=== PATIENT | female | born 1985 | race Caucasian/White ===

== ENCOUNTER 2023-04-13 12:45 | Outpatient (CLI) | payer OTHER, SELFPAY | END 2023-04-13 12:46 | disposition home or self-care (01) | LOC: ANHAUDIO 12:46 | PROVIDERS: Visit Provider Otolaryngology | DX: H91.91 Unspecified hearing loss, right ear (principal) | CPT/HCPCS: 92552; 92556; 92567 ==

== ENCOUNTER 2024-01-30 12:39 | Emergency (ER) | payer OTHER, SELFPAY ==
--- NOTE | ~2024-01-30 | CT_ITS ---
EXAMINATION: CT brain wo con DATE: 01/30/2024 15:05 INDICATION: numbness . TECHNIQUE: Computed tomography (CT) of the head was performed without intravenous contrast. The mA wa s adjusted according to patient size. Iterative reconstruction technique was employed. The dose-lengt h product was 529.67 mGy-cm. COMPARISON: None. FINDINGS: No acute intracranial hemorrhage or extra-axial fluid collection. No hydrocephalus, mass, or herniation. No acute ischemic infarct. Unremarkable dural venous sinus attenuation. No acute osseous abnormality. Ethmoid mucosal thickening, retention cyst/polyp in the left sphenoid sinus, the remaining aerated sp aces are clear. 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 Reviewed, dictated and finalized at location K.
[2024-01-30 13:03] VITALS: BP 128/80; PULSE 82; RESP 18; TEMP 36.5; O2SAT 100
--- NOTE | 2024-01-30 14:46 | ED.GENADULT ---
HPI - General Adult General Chief complaint: Neuro Symptoms/Deficit <Mervat Hook March, - Last Filed: 01/30/24 14:50> Stated complaint: nubness tingling on right side head <Mervat Hook March, - Last Filed: 01/30/24 14:50> Time Seen by Provider: 01/30/24 14:47 <Mervat Hook March, - Last Filed: 01/30/24 14:50> Focused HPI: Brittny Kaye is a 38 y/o female who presents with reports of having hx of migraines and they usually are behind her ears/eyes and she states that since she has had about 3 different severe migraines this week that felt different. She presents today because this one started at 0630 and nothing is making it better she states the pain is to the top of her right head/ she feels jittery and really tired. She also states that she has had intermittent face pain on the right side and intermittent numbness to her right hand GENERAL: Well-appearing, well-nourished, and in no acute distress. HEAD: Normocephalic, atraumatic. CHEST: Clear to auscultation. ?No respiratory distress. HEART: Regular rate and rhythm.? NEURO: ?Alert and oriented x3. Patient screened in triage and initial orders placed.? ?Additional care and disposition to be based upon?diagnostic testing and treatment. <Mervat Hook March, - Last Filed: 01/30/24 14:50> History of Present Illness HPI narrative: Patient is a 30-year-old female who presents emergency department with chief complaint of headache. Patient reports she has prior history of migraines and reports that she started having 3 different wounds over the last week patient states this morning about 630 the morning started having pain on the right side of her head felt jittery and tired the patient states she did feel a little tingly sensation on the right side of her face and reported that she had tingling in her 4th and 5th digit of her right hand. The patient states this is starting to feel better at this time and the onset was at 6:30 a.m.. The patient states she has no other focal weakness the patient states that because this felt different than her previous migraines she decided to come to the emergency department for evaluation. <Patrick Urrutia MD - Last Filed: 01/30/24 22:05> Related Data Home medications: Home Medications Medication Instructions Recorded Confirmed No Home Medications 08/05/20 03/14/23 <Mervat Petit APRN - Last Filed: 01/30/24 14:50> Allergies/adverse reactions: Allergies Allergy/AdvReac Type Severity Reaction Status Date / Time No Known Allergies Allergy Unverified 03/14/23 13:44 <Mervat Petit DAY CARE TEACHER - Last Filed: 01/30/24 14:50> Review of Systems Review of Systems: A 10 system review of systems was completed on the patient and is negative except for what is stated in the HPI. Nursing and ancillary documentation was reviewed. <Patrick Urrutia MD - Last Filed: 01/30/24 22:05> PMFSH Social History Social History: Social History Smoking status: Never smoker Smokeless tobacco user: other Second hand tobacco smoke exposure: No Alcohol intake: never Lack of Transportation: No Lack of Food: Never True Current Housing: I Have Housing Concerned About Future Housing: No Difficulty Paying Gas/Electric Bills: No Difficulty Paying for Meds: No Currently Unemployed: No Education: Decline to Answer Difficulty w/ Childcare or Family Care: No <Mervat Petit APRN - Last Filed: 01/30/24 14:50> Exam Narrative: GENERAL: Well-appearing, well-nourished, and in no acute distress. HEAD: Normocephalic, atraumatic. EYES: PERRLA and EOMI. ENT: Nares clear, no rhinorrhea or epistaxis. Mucous membranes moist. NECK: Supple. CHEST: Clear to auscultation. No respiratory distress. HEART: Regular rate and rhythm. No murmur heard. Normal peripheral pulses. ABDOMEN: Soft, nontender, nondistended, normal active dari
[2024-01-30 20:25] VITALS: BP 112/82; PULSE 82; RESP 15; O2SAT 100
[2024-01-30 21:05] LABS: Basophils Absolute Auto 0.1 K/mm3 (0.0-0.1); Basophils Percent Auto 0.8 % (0.2-1.2); Eosinophils Absolute Auto 0.2 K/mm3 (0-0.3); Eosinophils Percent Auto 1.6 % (0-4.4); Hematocrit 40.1 % (37.0-47.0); Hemoglobin 13.2 g/dL (12.0-15.0); Immature Granulocyte Absolute 0.03 K/mm3 (0.00-0.031); Immature Granulocyte Percent A 0.3 % (0-0.5); Lymphocytes Absolute Auto 2.82 K/mm3 (0.9-3.2); Lymphocytes Percent Auto 25.6 % (18.3-44.2); Mean Corpuscular HGB Conc 32.9 g/dl (32-36); Mean Corpuscular Hemoglobin 27.4 pg (26-34); Mean Corpuscular Volume 83.4 fl (80-100); Mean Platelet Volume 9.6 fl (7.4-10.4); Monocytes Absolute Auto 0.8 K/mm3 (0.1-0.6); Monocytes Percent Auto 7.4 % (2.6-8.5); Neutrophils Absolute Auto 7.1 K/mm3 (1.3-6.7); Neutrophils Percent Auto 64.3 % (45.5-73.1); Platelet Count Result 357 k/mm3 (150-375); Red Blood Count 4.81 M/mm3 (4.2-5.4); Red Cell Distribution Width 13.1 % (11.5-14.5)
[2024-01-30 21:19] LABS: Anion Gap 6 mmol/L (8-16); Blood Urea Nitrogen 17 mg/dL (7-17); Calcium 9.1 mg/dL (8.4-10.2); Carbon Dioxide 27 mmol/L (22-30); Chloride 103 mmol/L (98-107); Estimated Glomerular Filt Rate > 60; Glucose 97 mg/dL (65-110); Potassium 3.8 mmol/L (3.4-5.0); Sodium 136 mmol/L (137-145)
[2024-01-30] MEDS: KETOROLAC 30 MG/ML VIAL (*BKC) IV PUSH (21:23)
[2024-01-30] MEDS: diphenhydrAMINE HCl INJ 50 MG/ML VIAL 25 MG IV PUSH (21:25)
[2024-01-30] MEDS: PROCHLORPERAZINE EDISYLATE 10 MG/2 ML VIAL IV PUSH (21:25)
[2024-01-30] MEDS: SODIUM CHLORIDE 0.9% IV 1,000 ML 999 ML IV CONT (21:26)
[2024-01-30 21:40] LABS: Appearance Urine Cloudy (Clear); Bacteria Urine None Seen /hpf; Bilirubin Urine Negative (Negative); Blood Urine 1+ (Negative); Color Urine Yellow (Yellow); Glucose Urine UA Negative (Negative); Ketones Urine Trace mg/dL (Negative); Leukocyte Esterase Ur Trace LEU/UL (Negative); Nitrate Urine Negative (Negative); Non Pathogenic Casts 0-2; Protein Urine Negative (Negative); Specific Grav Ur 1.024 (1.001-1.035); Squamous Epithelial Cell Urine Few /hpf (Few); WBC Urine 0-5 /hpf (0-3)
[2024-01-30 21:47] LABS: Add Urine Microscopic? YES
[2024-01-30 22:02] VITALS: BP 116/66; PULSE 58; RESP 15; O2SAT 100
[2024-01-30 22:24] VITALS: BP 118/62; PULSE 67; RESP 16; O2SAT 100
== END 2024-01-30 22:26 | disposition home or self-care (01) ==
PROVIDERS: Nurse Practitioner Family; Emergency Provider Emergency Medicine
DX: R51.9 Headache, unspecified (principal)
CPT/HCPCS: 36415; 70450; 80048; 81025; 85025; 96361; 96374; 96375; 99284; J0780; J1200; J1885; J7030